=== PATIENT | female | born 1970 | race Caucasian/White ===

== ENCOUNTER 2016-07-02 18:13 | Emergency (ER) | payer OTHER ==
--- NOTE | 2016-07-02 20:44 | Cat Scan Report ---
FINAL REPORT EXAM: CT HEAD/BRAIN WO CON HISTORY: HEADACHE TECHNIQUE: Standard unenhanced CT of the head at 5.0 millimeter axial increments PRIORS: CT head 03/08/2016 FINDINGS: The ventricular system is normal in size and configuration. There is no evidence for parenchymal volume loss. There is no evidence for mass lesion, mass effect, midline shift, acute intracranial hemorrhage, or acute ischemia/ infarction. Visualized paranasal sinuses are clear. IMPRESSION: Negative CT of the head. No acute intracranial process noted. No change.
[2016-07-02] MEDS ORDERED: DECADRON IM ONE (23:57)
--- NOTE | 2016-07-03 00:01 | Emergency Department Report ---
ED Headache HPI - General Chief Complaint: Headache Stated Complaint: SENT HER TO ER FOR L SIDE OF NECK Time Seen by Provider: 07/02/16 23:46 Source: patient - History of Present Illness Timing/Duration: 1 week Quality: moderate Head Injury Location: frontal, temporal Recent Head Trauma: frequent headaches, chronic headaches Modifying Factors: improves with: cold therapy Associated Symptoms: facial pain. denies: confusion, fatigue, fever/chills, nausea/vomiting, nasal congestion, nasal drainage, numbness in legs/feet, seizures, sinus infection, stiff neck Allergies/Adverse Reactions: Allergies No Known Allergies Allergy (Verified 03/08/16 16:41) Home Medications: Ambulatory Orders predniSONE [Deltasone] 20 mg PO QDAY #10 tab 03/08/16 Acyclovir [Zovirax Cap] 400 mg PO TID #30 cap 07/03/16 predniSONE [Deltasone] 50 mg PO QDAY #6 tab 07/03/16 ED Review of Systems ROS: Stated complaint: SENT HER TO ER FOR L SIDE OF NECK Other details as noted in HPI Constitutional: denies: chills, fever Eyes: denies: eye pain, eye discharge, vision change ENT: denies: ear pain, throat pain Respiratory: denies: cough, shortness of breath, wheezing Cardiovascular: denies: chest pain, palpitations Endocrine: no symptoms reported Gastrointestinal: denies: abdominal pain, nausea, diarrhea Genitourinary: denies: urgency, dysuria, discharge Musculoskeletal: denies: back pain, joint swelling, arthralgia Skin: denies: rash, lesions Neurological: denies: headache, weakness, paresthesias Psychiatric: denies: anxiety, depression Hematological/Lymphatic: denies: easy bleeding, easy bruising ED Past Medical Hx - Past Medical History Previous Medical History?: Yes Additional medical history: [place] Palsy - Surgical History Past Surgical History?: Yes Additional Surgical History: x 2 - Social History Smoking Status: Never Smoker Substance Use Type: None - Medications Home Medications: Home Medications Medication Instructions Recorded Confirmed Last Taken Type predniSONE [Deltasone] 20 mg PO QDAY #10 tab 03/08/16 Unknown Rx Acyclovir [Zovirax Cap] 400 mg PO TID #30 cap 07/03/16 Unknown Rx predniSONE [Deltasone] 50 mg PO QDAY #6 tab 07/03/16 Unknown Rx ED Physical Exam - General Limitations: Language Barrier General appearance: alert, in no apparent distress - Head Head exam: Present: atraumatic, normocephalic - Eye Eye exam: Present: normal appearance - ENT ENT exam: Present: mucous membranes moist - Neck Neck exam: Present: normal inspection - Respiratory Respiratory exam: Present: normal lung sounds bilaterally. Absent: respiratory distress - Cardiovascular Cardiovascular Exam: Present: regular rate, normal rhythm. Absent: systolic murmur, diastolic murmur, rubs, gallop - GI/Abdominal GI/Abdominal exam: Present: soft, normal bowel sounds - Extremities Exam Extremities exam: Present: normal inspection - Back Exam Back exam: Present: normal inspection - Neurological Exam Neurological exam: Present: alert, oriented X3, other (mild Santiago's palsy on right side / no temporal tenderness ) - Psychiatric Psychiatric exam: Present: normal affect, normal mood - Skin Skin exam: Present: warm, dry, intact, normal color. Absent: rash ED Course Vital Signs 07/02/16 07/02/16 19:48 22:55 Temperature 98.1 F 98.2 F Pulse Rate 76 79 Respiratory 18 18 Rate Blood Pressure 131/96 126/76 O2 Sat by Pulse 97 99 Oximetry ED Medical Decision Making - Radiology Data Radiology results: report reviewed, image reviewed - Medical Decision Making Patient doing well, had a residual Santiago's palsy some years ago and she describes the symptoms as the same and returning, Rest of neuro exam is normal, Head CT done and negative , will dc Critical care attestation.: If time is entered above; I have spent that time in minutes in the direct care of this critically ill patient, excluding procedure time. ED Disposition Clinical Impression: Headache, Santiago palsy Disposition: DISCHARGED TO HOME OR SELFCARE Is pt being admited?: No Does the pt Need Aspirin: No Condition: Good Prescriptions: Acyclovir [Zovirax Cap] 400 mg PO TID #30 cap predniSONE [Deltasone] 50 mg PO QDAY #6 tab Referrals: PRIMARY CARE, [Primary Care Provider] - 3-5 Days Time of Disposition: 00:01
[2016-07-03 00:09] VITALS: BP 107/82
== END 2016-07-03 00:25 | disposition home or self-care (01) ==
LOC: ED 18:13
DX: R51 Headache (principal); G51.0 Bell's palsy
CPT/HCPCS: 70450; 96372; 99283; J1100